=== PATIENT | male | born 2000 | race Caucasian/White ===

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

== ENCOUNTER 2021-04-06 13:33 | Emergency (ER) | payer BC ==
[2021-04-06 13:39] VITALS: RESP 18; TEMP 98
[2021-04-06] MEDS ORDERED: LIDOCAINE 1% INJ 10MG/ML (20 ML MDV) SQ ONE (14:10)
[2021-04-06] MEDS ORDERED: MORPHINE SULFATE 4 MG/ML SYRINGE IM STA (14:10)
--- NOTE | 2021-04-06 14:13 | ED ---
Wound/Laceration HPI - General Chief Complaint: Wound/Laceration Stated Complaint: R middle finger injury Source: patient, RN notes reviewed Mode of arrival: ambulatory Limitations: no limitations - History of Present Illness Initial Comments: Patient is a 20-year-old male that presents to emergency problem with a right fingernail injury. He notes that he was here with his friend when his hand Put a spade bit through his right middle finger fingernail. He notes that this is the most excruciating pain please ever experienced appointment worse make him nauseous. Patient notes that he did not look at too much as it was making him sick to his stomach and mucousy wrapped it and some tissue an electric tape. He notes that every time he tries to remove the bandage and wrapping it causes severe pain and would like some pain medication before removing the bandage. He denied any loss of sensation weakness numbness tingling in the right middle finger. - Related Data Home Medications Medication Instructions Recorded Confirmed Fluticasone Nasal [place] [Flonase 1 spr EA NOSTRIL DAILY PRN 04/06/21 04/06/21 Nasal [place]] Levalbuterol Tartrate 1 puff INHALATION RT-DAILY PRN 04/06/21 04/06/21 [Levalbuterol Tartrate 45 MCG Hfa] Levocetirizine Dihydrochloride 5 mg PO HS 04/06/21 04/06/21 [Xyzal] Previous Rx's Medication Instructions Recorded Cephalexin [Keflex] 500 mg PO Q8HR 7 Days #21 cap 04/06/21 Allergies Allergy/AdvReac Type Severity Reaction Status Date / Time azithromycin Allergy Rash/Hives Verified 04/06/21 15:02 dextromethorphan HBr Allergy Rash/Hives Verified 04/06/21 15:02 [From [facility]] Review of Systems ROS Statement: Those systems with pertinent positive or pertinent negative responses have been documented in the HPI. ROS Other: All systems not noted in ROS Statement are negative. Past Medical History Past Medical History: Asthma History of Any Multi-Drug Resistant Organisms: None Reported Past Surgical History: Adenoidectomy, Tonsillectomy Past Psychological History: No Psychological Hx Reported Smoking Status: Never smoker Past Alcohol Use History: None Reported Past Drug Use History: None Reported General Exam Limitations: no limitations General appearance: alert, in no apparent distress Head exam: Present: atraumatic, normocephalic, normal inspection Eye exam: Present: normal appearance, PERRL, EOMI. Absent: scleral icterus, conjunctival injection, periorbital swelling Respiratory exam: Present: normal lung sounds bilaterally. Absent: respiratory distress, wheezes, rales, rhonchi, stridor Cardiovascular Exam: Present: regular rate, normal rhythm, normal heart sounds. Absent: systolic murmur, diastolic murmur, rubs, gallop, clicks Right Hand Wrist exam: Present: full ROM, tenderness (Middle finger distal aspect), nail avulsion (Right middle finger secondary to trauma from a spade bit accident.) Neurological exam: Present: alert, oriented X3, CN II-XII intact Psychiatric exam: Present: normal affect, normal mood Skin exam: Present: warm, dry, intact, normal color. Absent: rash Course Vital Signs 04/06/21 13:35 Temperature 98 F Pulse Rate 94 Respiratory 18 Rate Blood Pressure 127/81 O2 Sat by Pulse 98 Oximetry Medical Decision Making - Medical Decision Making 20-year-old male with a drill bit injury to his right middle fingernail. X-ray of the right middle finger, 4 mg morphine, lidocaine ordered area Tetanus vaccine ordered. Case discussed with Dr. Martinez, patient can discharge home. - Radiology Data Radiology results: report reviewed, image reviewed Right middle finger x-ray: Chest fracture noted arising from the subungual tuft of the right third digit. Soft tissue injury noted that to the nailbed. Joint spaces are well preserved. Disposition Clinical Impression: Open fracture of tuft of distal phalanx of finger Disposition: HOME SELF-CARE Condition: Stable Instructions (If sedation given, give patient instructions): Nail Avulsion (ED) Additional Instructions: Please return to the Emergency Department if symptoms worsen or any other concerns. Keep right middle finger bandaged wrapped in cleaned. At work he can cover with rubber glove finger taped on to prevent any excessive dirt and grime. Follow-up with primary care and orthopedics if needed. Take Tylenol Motrin as needed for pain control. Is patient prescribed a controlled substance at d/c from ED?: No Referrals: Chava Alston DO [Primary Care Provider] - 1-2 days Ángel Rodriguez DO [Doctor of Osteopathic Medicine] - 1-2 days
--- NOTE | 2021-04-06 14:57 | XR ---
EXAMINATION TYPE: XR finger RT DATE OF EXAM: 04/06/2021 CLINICAL HISTORY: pain TECHNIQUE: 3 views of the right third digit are submitted. COMPARISON: None FINDINGS: Chip fracture noted arising from the subungual tuft of the right third digit. Soft tissue i njury noted that to the nail bed. Joint spaces are well-preserved. Correlate for soft tissue injury. IMPRESSION: As above.
[2021-04-06] MEDS ORDERED: DIPH,PERTUS(ACELL)TETVAC-LF 0.5 ML VIAL IM ONE (14:58)
[2021-04-06 15:32] VITALS: BP 124/72; PULSE 88
== END 2021-04-06 15:31 | disposition home or self-care (01) ==
LOC: EC 13:33
DX: S62.632A Displaced fracture of distal phalanx of right middle finger, initial encounter for closed fracture (principal); J45.909 Unspecified asthma, uncomplicated; Z79.51 Long term (current) use of inhaled steroids; Z79.899 Other long term (current) drug therapy; W27.8XXA Contact with other nonpowered hand tool, initial encounter
CPT/HCPCS: 73140; 90715; 99283; 96372; 90471; 11730; J2270; J2001

== ENCOUNTER 2022-02-02 14:40 | Emergency (ER) | payer BC, OTHER ==
[2022-02-02] MEDS ORDERED: SODIUM CHLORIDE 0.9% 1,000 ML IV STA (15:15)
[2022-02-02] MEDS ORDERED: ONDANSETRON 4 MG/2 ML VIAL IVP STA (15:15)
[2022-02-02 15:57] LABS: Appearance,Urine Clear (Clear); Bilirubin,Urine Negative (Negative); Blood,Urine Negative (Negative); Color,Urine Yellow; Glucose,Urine (UA) Negative (Negative); Ketones,Urine Trace (Negative); Leukocyte Esterase,Urine Negative (Negative); Nitrite,Urine Negative (Negative); Protein,Urine Trace (Negative); Specific Gravity,Urine 1.027 (1.001-1.035); Urobilinogen,Urine <2.0 mg/dL (<2.0)
[2022-02-02 16:03] LABS: ALT 26 U/L (4-49); AST 30 U/L (17-59); African American GFR (CKD) >90 (>60 ml/min/1.73 sqM); Albumin 4.7 g/dL (3.5-5.0); Alkaline Phosphatase 53 U/L (38-126); Anion Gap 12 mmol/L; Blood Urea Nitrogen 23 mg/dL (9-20); Calcium 9.5 mg/dL (8.4-10.2); Carbon Dioxide 23 mmol/L (22-30); Chloride 101 mmol/L (98-107); Glucose 108 mg/dL (74-99); Lipase 43 U/L (23-300); Non-African American GFR(CKD) >90 (>60 ml/min/1.73 sqM); Potassium 4.2 mmol/L (3.5-5.1); Sodium 136 mmol/L (137-145); Total Bilirubin 1.5 mg/dL (0.2-1.3); Total Protein 7.3 g/dL (6.3-8.2)
[2022-02-02 16:09] LABS: Basophils % (A) 0 %; Eosinophils % (A) 0 %; HCT 52.8 % (39.0-53.0); Lymphocytes # (A) 0.4 k/uL (1.0-4.8); Lymphocytes % (A) 3 %; MCH 31.7 pg (25.0-35.0); MCV 93.2 fL (80.0-100.0); Mean Platelet Volume 7.8; Monocytes # (A) 0.4 k/uL (0-1.0); Monocytes % (A) 4 %; Neutrophils # (A) 9.9 k/uL (1.3-7.7); Neutrophils % (A) 92 %; Platelet Count 211 k/uL (150-450); RBC 5.66 m/uL (4.30-5.90); RDW 12.7 % (11.5-15.5); WBC 10.8 k/uL (4.0-11.0)
--- NOTE | 2022-02-02 16:13 | ED ---
Abdominal Pain HPI - General Chief Complaint: Abdominal Pain Stated Complaint: Cramping, Nausea, Vomiting Time Seen by Provider: 02/02/22 14:55 Source: patient Mode of arrival: ambulatory Limitations: no limitations - History of Present Illness Initial Comments: 21-year-old male patient presents to the emergency department today for evaluation of vomiting and diarrhea. States he started vomiting last night and vomited several times throughout the night and then again this morning. States he did start having diarrhea as well this morning. Reports abdominal cramping in the upper abdomen. Reports intermittent fevers and sweats. States he did just return from a camping trip with a were filtering river water and drinking it. States that 2 other people in his alliance party of also had some vomiting. No history of abdominal surgery. Not taking any medication for his symptoms. Denies any hematochezia, melena, hematemesis. He is urinating without di fficulty. Patient denies any recent rash, cough, shortness of breath, chest pain, back pain, numbness, tingling, dizziness, weakness, hematuria, dysuria, urinary urgency, urinary frequency, headache, visual changes, or any other complaints. - Related Data Home Medications Medication Instructions Recorded Confirmed Fluticasone Nasal [place] [Flonase 1 spr EA NOSTRIL DAILY PRN 04/06/21 04/06/21 Nasal [place]] Levalbuterol Tartrate 1 puff INHALATION RT-DAILY PRN 04/06/21 04/06/21 [Levalbuterol Tartrate 45 MCG Hfa] Levocetirizine Dihydrochloride 5 mg PO HS 04/06/21 04/06/21 [Xyzal] Previous Rx's Medication Instructions Recorded Cephalexin [Keflex] 500 mg PO Q8HR 7 Days #21 cap 04/06/21 Ondansetron [Zofran ODT] 4 mg PO Q8HR PRN #10 tab 02/02/22 metroNIDAZOLE [Flagyl] 500 mg PO QID #40 tab 02/02/22 Allergies Allergy/AdvReac Type Severity Reaction Status Date / Time azithromycin Allergy Rash/Hives Verified 02/02/22 14:45 dextromethorphan HBr Allergy Rash/Hives Verified 02/02/22 14:45 [From [employer]] Review of Systems ROS Statement: Those systems with pertinent positive or pertinent negative responses have been documented in the HPI. ROS Other: All systems not noted in ROS Statement are negative. Past Medical History Past Medical History: Asthma History of Any Multi-Drug Resistant Organisms: None Reported Past Surgical History: Adenoidectomy, Tonsillectomy Past Psychological History: No Psychological Hx Reported Smoking Status: Never smoker Past Alcohol Use History: None Reported Past Drug Use History: None Reported General Exam Limitations: no limitations General appearance: alert, in no apparent distress, other (This is a well- developed, well-nourished adult male in no acute distress.) Respiratory exam: Present: normal lung sounds bilaterally. Absent: respiratory distress, wheezes, rales, rhonchi, stridor Cardiovascular Exam: Present: normal rhythm, tachycardia, normal heart sounds. Absent: systolic murmur, diastolic murmur, rubs, gallop, clicks GI/Abdominal exam: Present: soft, tenderness (Generalized, mild), normal bowel sounds. Absent: distended, guarding, rebound, rigid Neurological exam: Present: alert, oriented X3, CN II-XII intact Psychiatric exam: Present: normal affect, normal mood Skin exam: Present: warm, dry, intact, normal color. Absent: rash Course Vital Signs 02/02/22 14:42 Temperature 100.7 F H Pulse Rate 117 H Respiratory 20 Rate Blood Pressure 114/72 O2 Sat by Pulse 97 Oximetry Medical Decision Making - Medical Decision Making 21-year-old male patient presents to the emergency department today for evaluation of vomiting and diarrhea since last night. Physical examination revealed mild generalized abdominal tenderness. He did have slightly elevated temperature 100.7 on arrival. Vital signs did reveal some mild tachycardia. Labs reviewed and revealed normal white blood cell count. Did have some evidence of dehydration. He is negative for COVID-19. Patient was recently drinking from a river so will treat with Flagyl for possible Giardia infection pending his stool cultures. Discharge follow-up with the primary care physician for recheck in 1-2 days. Return parameters were discussed in detail. They verbalize understanding and agree with this plan. My attending is Dr. Rivera. - Lab Data Result diagrams: 02/02/22 15:24 02/02/22 15:24 Lab Results 02/02/22 02/02/22 02/02/22 Range/Units 15:24 15:24 15:24 WBC 10.8 (4.0-11.0) k/uL RBC 5.66 (4.30-5.90) m/uL Hgb 18.0 H (13.0-17.5) gm/dL Hct 52.8 (39.0-53.0) % MCV 93.2 (80.0-100.0) fL MCH 31.7 (25.0-35.0) pg MCHC 34.0 (31.0-37.0) g/dL RDW 12.7 (11.5-15.5) % Plt Count 211 (150-450) k/uL MPV 7.8 Neutrophils % 92 % Lymphocytes % 3 % Monocytes % 4 % Eosinophils % 0 % Basophils % 0 % Neutrophils # 9.9 H (1.3-7.7) k/uL Lymphocytes # 0.4 L (1.0-4.8) k/uL Monocytes # 0.4 (0-1.0) k/uL Eosinophils # 0.0 (0-0.7) k/uL Basophils # 0.0 (0-0.2) k/uL Sodium 136 L (137-145) mmol/L Potassium 4.2 (3.5-5.1) mmol/L Chloride 101 (98-107) mmol/L Carbon Dioxide 23 (22-30) mmol/L Anion Gap 12 mmol/L BUN 23 H (9-20) mg/dL Creatinine 0.95 (0.66-1.25) mg/dL Est GFR (CKD-EPI)AfAm >90 (>60 ml/min/1.73 sqM) Est GFR (CKD-EPI)NonAf >90 (>60 ml/min/1.73 sqM) Glucose 108 H (74-99) mg/dL Plasma Lactic Acid [place] (0.7-2.0) mmol/L Calcium 9.5 (8.4-10.2) mg/dL Total Bilirubin 1.5 H (0.2-1.3) mg/dL AST 30 (17-59) U/L ALT 26 (4-49) U/L Alkaline Phosphatase 53 (38-126) U/L Total Protein 7.3 (6.3-8.2) g/dL Albumin 4.7 (3.5-5.0) g/dL Lipase 43 (23-300) U/L Urine Color Yellow Urine Appearance Clear (Clear) Urine pH 7.0 (5.0-8.0) Ur Specific [place] 1.027 (1.001-1.035) Urine Protein Trace H (Negative) Urine Glucose (UA) Negative (Negative) Urine Ketones Trace H (Negative) Urine Blood Negative (Negative) Urine Nitrite Negative (Negative) Urine Bilirubin Negative (Negative) Urine Urobilinogen <2.0 (<2.0) mg/dL Ur Leukocyte Esterase Negative (Negative) Coronavirus (PCR) (Not Detectd) 02/02/22 02/02/22 Range/Units 15:24 15:44 WBC (4.0-11.0) k/uL RBC (4.30-5.90) m/uL Hgb (13.0-17.5) gm/dL Hct (39.0-53.0) % MCV (80.0-100.0) fL MCH (25.0-35.0) pg MCHC (31.0-37.0) g/dL RDW (11.5-15.5) % Plt Count (150-450) k/uL MPV Neutrophils % % Lymphocytes % % Monocytes % % Eosinophils % % Basophils % % Neutrophils # (1.3-7.7) k/uL Lymphocytes # (1.0-4.8) k/uL Monocytes # (0-1.0) k/uL Eosinophils # (0-0.7) k/uL Basophils # (0-0.2) k/uL Sodium (137-145) mmol/L Potassium (3.5-5.1) mmol/L Chloride (98-107) mmol/L Carbon Dioxide (22-30) mmol/L Anion Gap mmol/L BUN (9-20) mg/dL Creatinine (0.66-1.25) mg/dL Est GFR (CKD-EPI)AfAm (>60 ml/min/1.73 sqM) Est GFR (CKD-EPI)NonAf (>60 ml/min/1.73 sqM) Glucose (74-99) mg/dL Plasma Lactic Acid [place] 1.5 (0.7-2.0) mmol/L Calcium (8.4-10.2) mg/dL Total Bilirubin (0.2-1.3) mg/dL AST (17-59) U/L ALT (4-49) U/L Alkaline Phosphatase (38-126) U/L Total Protein (6.3-8.2) g/dL Albumin (3.5-5.0) g/dL Lipase (23-300) U/L Urine Color Urine Appearance (Clear) Urine pH (5.0-8.0) Ur Specific [place] (1.001-1.035) Urine Protein (Negative) Urine Glucose (UA) (Negative) Urine Ketones (Negative) Urine Blood (Negative) Urine Nitrite (Negative) Urine Bilirubin (Negative) Urine Urobilinogen (<2.0) mg/dL Ur Leukocyte Esterase (Negative) Coronavirus (PCR) Not Detected (Not Detectd) Disposition Clinical Impression: Diarrhea, Vomiting Disposition: HOME SELF-CARE Condition: Good Instructions (If sedation given, give patient instructions): Giardiasis (ED), Acute Nausea and Vomiting (ED), Acute Diarrhea (ED) Additional Instructions: Throat clear liquid diet and advance as tolerated. Take medication as needed for nausea and vomiting. Complete antibiotic prescription and full. Do not drink alcohol while taking Flagyl. Follow-up with your primary care physician for recheck in 1-2 days. Await culture results. Return for any new, worsening, or concerning symptoms. Prescriptions: metroNIDAZOLE [Flagyl] 500 mg PO QID #40 tab Ondansetron [Zofran ODT] 4 mg PO Q8HR PRN #10 tab PRN Reason: Nausea Is patient prescribed a controlled substance at d/c from ED?: No Referrals: Chava Alston DO [Primary Care Provider] - 1-2 days Time of Disposition: 16:43
[2022-02-02] MEDS ORDERED: metroNIDAZOLE 500 MG TAB PO STA (16:40)
[2022-02-02] MEDS ORDERED: ONDANSETRON 4 MG ODT STARTER PACK 2 TAB BTL PO STA (16:40)
[2022-02-02 17:04] VITALS: BP 116/74; PULSE 90; RESP 18; TEMP 99
[2022-02-03 09:04] LABS: Cryptosporidium Antigen Negative (Negative)
== END 2022-02-02 17:03 | disposition home or self-care (01) ==
LOC: EC 14:40
DX: R19.7 Diarrhea, unspecified (principal); R11.10 Vomiting, unspecified; J45.909 Unspecified asthma, uncomplicated; Z20.822 Contact with and (suspected) exposure to COVID-19; Z88.1 Allergy status to other antibiotic agents
CPT/HCPCS: 99284; 96374; 96361; 36415; 80053; 83605; 83690; 85025; 81003; 87045; 87329; 87328; 83630; 87046; 87635; J2405; S0119

== ENCOUNTER → 2025-04-04 | Outpatient (CLI) | payer BC ==
--- NOTE | 2025-04-05 14:38 | MR ---
EXAMINATION TYPE: MR elbow RT wo con DATE OF EXAM: 04/04/2025 5:21 PM COMPARISON: None. CLINICAL INDICATION: Male, 24 years old with history of M25.521 R ELBOW PIAN S53.441A LIGAMENT SPRAIN ; [facility], Right elbow pain, clicking and locking for 4-6 weeks. TECHNIQUE: Multiplanar multi-sequence imaging was performed of the elbow joint. No gadolinium given. FINDINGS: Ligaments and tendons: The common extensor tendon has intermediate T2 signal intensity wit h in it. The tendon remains intact. The lateral ulnar collateral ligament, annular ligament, and la teral collateral ligament are intact. The common flexor tendon, biceps tendon, brachialis tendon, an d triceps tendon are within normal limits. Osseous structures: The remaining bone marrow signal intensity is unremarkable. The ulnar nerve is mildly thickened with surrounding high PD signal edema series 701 image 30, series 501 image 25 and image series 411 image 32. IMPRESSION: 1. No evidence of ligament tear. 2. Thickened and edematous ulnar nerve just proximal to the joint. Correlate for ulnar nerve subluxa tion. 3. No evidence for joint body. [facility], , 04/05/2025 2:35 PM
== END | disposition home or self-care (01) ==
LOC: RADMRIMAIN 16:19
PROVIDERS: ATTEND Orthopaedic Surgery
DX: S53.441A Ulnar collateral ligament sprain of right elbow, initial encounter (principal); R60.0 Localized edema; X58.XXXA Exposure to other specified factors, initial encounter